=== PATIENT | male | born 1975 | race Caucasian/White ===

== ENCOUNTER 2017-04-04 20:55 | Emergency (ER) | payer OTHER | END 2017-04-04 22:54 | disposition home or self-care (01) | LOC: ER 20:55 | DX: M54.5 Low back pain (principal) | CPT/HCPCS: 96372; 99282-25 ==

== ENCOUNTER 2017-04-11 20:54 | Emergency (ER) | payer OTHER | END 2017-04-12 00:45 | disposition home or self-care (01) | LOC: ER 20:54 | DX: M54.5 Low back pain (principal); G89.29 Other chronic pain; F17.210 Nicotine dependence, cigarettes, uncomplicated | CPT/HCPCS: 96372; 99282-25 ==

== ENCOUNTER 2017-05-03 22:13 | Emergency (ER) | payer OTHER | END 2017-05-03 23:10 | disposition home or self-care (01) | LOC: ER 22:13 | DX: M54.5 Low back pain (principal); G89.29 Other chronic pain; F17.210 Nicotine dependence, cigarettes, uncomplicated | CPT/HCPCS: 96372; 99282-25 ==